=== PATIENT | female | born 1955 | race Caucasian/White ===

== ENCOUNTER → 2020-06-05 | Outpatient (CLI) | payer MEDICARE ==
--- NOTE | 2020-06-06 06:45 | RAD ---
DXA BONE DENSITY AXIAL History: Reason: SCREENING / Spl. Instructions: / History: Postmenopausal Comparison: None. TECHNIQUE: Dual energy x-ray absorptiometry of the lumbar spine and right hip was performed. T-score of average bone mineral density based was calculated based on standard deviations above or below the expected young adult normal value. Diagnostic definitions were established by the [employer] z[employer]. FINDINGS: The average bone mineral density associated with L1-L4 is 0.95 g/cm^2, corresponding with a T-score of -1.9. The average total bone mineral density associated with right hip is 0.875 g/cm^2, corresponding with a T-score of -0.7. Refer to the worksheets for full detail. IMPRESSION: 1. Osteopenia according to the lumbar spine. Electronically signed by: Александр Montesinos DO (06/06/2020 6:43 AM) [facility]
== END ==
LOC: DXRAD 12:39
PROVIDERS: ATTEND Family Medicine
DX: M85.88 Other specified disorders of bone density and structure, other site (principal); Z78.0 Asymptomatic menopausal state
CPT/HCPCS: 77080

== ENCOUNTER 2020-11-08 15:44 | Emergency (ER) | payer MEDICARE ==
[~2020-11-08] VITALS: Ht 162.6 cm; Wt 73.0 kg
--- NOTE | 2020-11-08 16:57 | RAD ---
Right knee x-rays 3 views HISTORY: Right knee pain. FINDINGS: No fracture. No dislocation. Osteoarthritic joint space narrowing and bone spurring at the medial tibial femoral compartment and at the patellofemoral compartment. No bone lesion evident. Soft tissues are unremarkable. IMPRESSION: No acute osseous injury. Osteoarthritis of the knee. Electronically signed by: Clarke Gan MD (11/08/2020 4:55 PM) [id number]
[2020-11-08] MEDS ORDERED: DEXAMETHASONE SOD PHOS 10 MG/ML VIAL. PO ONE (17:00)
[2020-11-08] MEDS ORDERED: traMADol 50 MG TABLET PO ONE (17:15)
--- NOTE | 2020-11-08 17:30 | PHYS DOC ---
Past History Past Surgical History: No Surgical History Alcohol Use: None General Adult EDM: Chief Complaint: KNEE INJURY HPI: HPI: 65-year-old female past medical history of osteoporosis presents to the ED with her biological son, (patient consents to his/her/their knowledge and involvement in pts' medical care), with complaints of right posterior knee pain, exacerbated with bearing weight and ambulating for the past 2 days. Patient states she does have a history of osteoporosis. Denies any new trauma, overuse or injury to the right knee. No associated fever, chills, rash, any swelling or deformity. Minimal relief with Naprosyn daily. Patient son states " is not normal for her to sit in her chair for the majority of the day due to her knee pain?" Pt starts arguing with her son "You stop criticizing me, you are not my body." Review of Systems: Review of Systems: Constitutional: Denies fever or chills Eyes: Denies change in visual acuity HENT: Denies nasal congestion or sore throat Respiratory: Denies cough or shortness of breath Cardiovascular: Denies chest pain or edema GI: Denies nausea or vomiting, Musculoskeletal: Denies back pain or joint swelling/deformity Integument: Denies rash or diaphoresis Neurologic: Denies focal weakness or sensory changes Lymphatic: Denies swollen glands Psychiatric: Denies depression or anxiety Current Medications: Current Meds: Current Medications Medications (Trade) Dose Ordered Sig/Osl Start Time Stop Time Status Last Admin Dose Admin Dexamethasone Sodium Phosphate (Decadron) 10 mg 1X ONCE 11/08/20 17:00 11/08/20 17:01 DC 11/08/20 17:04 10 MG Tramadol HCl (Ultram) 50 mg 1X ONCE 11/08/20 17:15 11/08/20 17:16 DC Allergies: Allergies: Allergies Coded Allergies Type Severity Reaction Last Updated Verified No Known Drug Allergies 11/08/20 No Physical Exam: PE: Constitutional: Well developed, well nourished, no acute distress, non-toxic appearance. HENT: Normocephalic, atraumatic, Eyes: EOMI, conjunctiva normal, no discharge. Neck: Normal range of motion, supple, Cardiovascular: S1/2 present, regular rhythm Lungs & Thorax: Speaking in full sentences, bilateral equal chest rise, no tachypnea or increased work of breathing Skin: Warm, dry, no erythema, no rash. [] Extremities: Antalgic gait with right leg weightbearing, no joint warmth/erythema/effusion, right knee valgus, right dp/pt pulses intact Neurologic: Alert and oriented X 3, normal motor function, normal sensory function, no focal deficits noted. [] Psychologic: Affect normal, judgement normal, mood normal. [] Current Patient Data: Vital Signs: Vital Signs Date Time Temp Pulse Resp B/P (MAP) Pulse Ox O2 Delivery O2 Flow Rate FiO2 11/08/20 15:50 98.0 102 16 141/61 (87) 97 Room Air EKG: EKG: [] Radiology/Procedures: Radiology/Procedures: IMAGING REPORT Signed PATIENT: ADELFO SULLIVAN LACCOUNT: [id number] : 1955 LOCATION: ER AGE: 65 SEX: F EXAM STATUS: REG ER ORD. PHYSICIAN: FABBY SERRATO DO REASON: right knee pain PROCEDURE: KNEE RIGHT 3V Right knee x-rays 3 views HISTORY: Right knee pain. FINDINGS: No fracture. No dislocation. Osteoarthritic joint space narrowing and bone spurring at the medial tibial femoral compartment and at the patellofemoral compartment. No bone lesion evident. Soft tissues are unremarkable. IMPRESSION: No acute osseous injury. Osteoarthritis of the knee. Electronically signed by: Ellie Gan MD (11/08/2020 4:55 PM) [id number] DICTATED AND SIGNED BY: ELLIE GAN MD DATE: 11/08/20 1654 CC: FABBY SERRATO DO; CALIXTO WHYTE ~MTH0 0 Heart Score: C/O Chest Pain: No Risk Factors: Risk Factors: DM, Current or recent (<one month) smoker, HTN, HLP, family history of CAD, obesity. Risk Scores: Score 0 - 3: 2.5% MACE over next 6 weeks - Discharge Home Score 4 - 6: 20.3% MACE over next 6 weeks - Admit for Clinical Observation Score 7 - 10: 72.7% MACE over next 6 weeks - Early Invasive Strategies Course & Med Decision Making: Course & Med Decision Making Pertinent Labs and Imaging studies reviewed. (See chart for details) Concern for acute on chronic right knee pain secondary to osteoarthritis, cannot appreciate any ligamentous injury with physical exam. Patient is able to bear weight but has an antalgic gait. Patient is neurovascularly intact. Analgesia given in ED and son will transport patient home. Will discharge home with strict ED return precautions were given for injury, neurologic deficits, severe pain, joint swelling, fever or rash. Encouraged urgent outpatient follow-up with PMD and orthopedic surgery for definitive management, nonemergent MRI may be beneficial. Life-threatening processes were considered but are low suspicion at this time, given history, physical exam and ED workup. Pt was educated on all prescription medications and adverse effects. All patient's questions were answered and pt was stable at time of discharge. Life/limb-threatening differential includes but is not limited to, avascular necrosis, septic arthritis, malignancy, compartment syndrome, fracture/ligamentous injury/overuse, decompression sickness, seronegative spondyloarthropathies, trauma including dislocation/fracture, Lyme disease, lupus, arthritis differentials, gout/pseudogout or decompression sickness. I have spoken with the patient and/or caregivers. I explained the patient's condition, diagnoses and treatment plan based on the information available to me at this time. I have answered the patient and/or caregiver's questions and addressed any concerns. The patient and/or caregivers have a good understanding of patient's diagnosis, condition and treatment plan as can be expected at this point. Vital signs have been stable. Patient's condition is stable and appropriate for discharge from the emergency department. Patient will pursue further outpatient evaluation with primary care physician or other designated or consulting physician as outlined in the discharge instructions. The patient and/or caregivers are agreeable to this plan of care and follow-up instructions have been explained in detail. The patient and/or caregivers have received these instructions in written form and have expressed an understanding of the discharge instructions. The patient and/or caregivers are aware that any significant change of condition or worsening of symptoms should prompt immediate return to this or the closest emergency department or call to 911. Chase Disclaimer: Chase Disclaimer: This electronic medical record was generated, in whole or in part, using a voice recognition dictation system. Departure Departure: Impression: Primary Impression: Osteoarthritis of right knee Disposition: HOME / SELF CARE / HOMELESS Condition: STABLE Referrals: CALIXTO WHYTE (PCP) Follow-up with your primary care physician in 24 to 48 hours OR FOLLOW UP WITH FAMILY MEDICINE: [address], [address] [place] [address] Patient Instructions: Osteoarthritis Additional Instructions: FOLLOW UP WITH ORTHOPEDICS: FOR DEFINITIVE MANAGEMENT of osteoarthritis Orthopaedic Surgery [address], [address] [place] [address] EMERGENCY DEPARTMENT GENERAL DISCHARGE INSTRUCTIONS Thank you for coming to [facility] (ED) today and trusting us with you care. We trust that you had a positivie experience in our Emergency Department. If you wish to speak to the department management, you may call the director at [phone]. YOUR FOLLOW UP INSTRUCTIONS ARE FOLLOWS: 1. Do you have a private Doctor? If you do not have a private doctor, please ask for a resource list of physicians or clinics that may be able to assist you with follow up care. 2. The Emergency Physician has interpreted your x-rays. The X-Ray specialist will also review them. If there is a change in the findings, you will be notified in 48 hours when at all possible. 3. A lab test or culture has been done, your results will be reviewed and you will be notified if you need a change in treatment. ADDITIONAL INSTRUCTIONS AND INFORMATION: 1. Your care today has been supervised by a physician who is specially trained in emergency care. Many problems require more than one evaluation for a complete diagnosis and treatment. We recommend that you schedule your follow up appointment as recommended to ensure complete treatment of you illness or injury. If you are unable to obtain follow up care and continue to have a problem, or if your condition worsens, we recommend that you return to the ED. 2. We are not able to safely determine your condition over the phone nor are we able to give sound medical advice over the phone. For these safety reasons, if you call for medical advice we will ask you to come to the ED for further evaluation. 3. If you have any questions regarding these discharge instructions please call the ED at [phone]. SAFETY INFORMATION: In the interest of safety, wellness, and injury prevention; we encourage you to wear your sealbelt, if you smoke; quite smoking, and we encourage family to use a protective helmet for bicycling and other sporting events that present an increased risk for head injury. IF YOUR SYMPTOMS WORSEN OR NEW SYMPTOMS DEVELOP, OR YOU HAVE CONCERNS ABOUT YOUR CONDITION; OR IF YOUR CONDITION WORSENS WHILE YOU ARE WAITING FOR YOUR FOLLOW UP APPOINTMENT; EITHER CONTACT YOUR PRIMARY CARE DOCTOR, THE PHYSICIAN WHOSE NAME AND NUMBER YOU WERE GIVEN, OR RETURN TO THE ED IMMEDIATELY. Scripts Capsaicin (CAPSAICIN) 42.5 Gm Cream..g. 1 RUKHSANA TP TID for knee pain for 7 Days, GM 0 Refills Prov: FABBY SERRATO DO 11/08/20 Meloxicam (MELOXICAM) 7.5 Mg Tablet 1 TAB PO BID PRN for joint pain, #15 TAB 0 Refills Never take more than 2 tablets in one day Prov: FABBY SERRATO DO 11/08/20 FABBY SERRATO DO Nov 08, 2020 17:30
[2020-11-08 17:37] VITALS: BP 104/57
[2020-11-08] MEDS ORDERED: CAPS42.514 TP (17:47)
[2020-11-08] MEDS ORDERED: MELO7.5T29 PO (17:47)
== END 2020-11-08 17:55 | disposition home or self-care (01) ==
LOC: ER 15:44
DX: M17.11 Unilateral primary osteoarthritis, right knee (principal)
CPT/HCPCS: 73562; 99283; J1100